=== PATIENT | male | born 1965 | race Caucasian/White ===

== ENCOUNTER 2018-02-28 17:33 | Inpatient (IN) | payer BC ==
[2018-02-28] MEDS ORDERED: TICAGRELOR 90 MG TAB PO STA (17:35)
[2018-02-28] MEDS ORDERED: MORPHINE SULF 5MG/10ML VL ONE (17:38)
[2018-02-28] MEDS ORDERED: MORPHINE SULFATE 4 MG/ML SYRINGE IVP STA (17:41)
[2018-02-28] MEDS ORDERED: MORPHINE SULFATE/PF 10MG/10ML VL IVP STA (17:41)
[2018-02-28] MEDS ORDERED: HEPARIN SODIUM,PORCINE 5,000 UNIT/ML 1 ML VIAL IV PRN (17:44)
[2018-02-28] MEDS ORDERED: NITROGLYCERIN SL TABS 0.4 MG TAB SUBLINGUAL PRN ×2 (17:44→18:33)
--- NOTE | 2018-02-28 17:44 | ED ---
General Adult HPI - General Stated complaint: Chest Pain Time Seen by Provider: 02/28/18 17:37 Source: RN notes reviewed, old records reviewed - History of Present Illness Initial comments: This is a 52-year-old male to the ER for evaluation, patient presents ER for evaluation of chest pain, patient accepted in transfer to [facility] for evaluation regarding severe chest pain positive ST elevated GA. Positive Chest pain currently Review of Systems ROS Statement: Those systems with pertinent positive or pertinent negative responses have been documented in the HPI. ROS Other: All systems not noted in ROS Statement are negative. General Exam General appearance: alert, in no apparent distress, anxious, in distress Head exam: Present: atraumatic, normocephalic, normal inspection Eye exam: Present: normal appearance, PERRL, EOMI. Absent: scleral icterus, conjunctival injection, periorbital swelling ENT exam: Present: normal exam, mucous membranes moist Neck exam: Present: normal inspection. Absent: tenderness, meningismus, lymphadenopathy Respiratory exam: Present: normal lung sounds bilaterally. Absent: respiratory distress, wheezes, rales, rhonchi, stridor Cardiovascular Exam: Present: regular rate, normal rhythm, normal heart sounds. Absent: systolic murmur, diastolic murmur, rubs, gallop, clicks GI/Abdominal exam: Present: soft, normal bowel sounds. Absent: distended, tenderness, guarding, rebound, rigid Extremities exam: Present: normal inspection, full ROM, normal capillary refill. Absent: tenderness, pedal edema, joint swelling, calf tenderness Back exam: Present: normal inspection Neurological exam: Present: alert, oriented X3, CN II-XII intact Psychiatric exam: Present: normal affect, normal mood Skin exam: Present: warm, dry, intact, normal color. Absent: rash Course - Reevaluation(s) Reevaluation #1: 02/28/18 17:43 Transfer follows received from [facility],, records reviewed from [facility] Reevaluation #2: 02/28/18 17:44 Cardiology evaluating patient in the ER EKG Findings - EKG Comments: EKG Findings:: EKG shows sinus rhythm rate of 70, SC 150, QRS 90, QTc [address] elevated GA Medical Decision Making - Medical Decision Making 52 male to the ED c/o chest pain. Severe chest pain started this morning. History of smoking. Patient will be admitted for cardiology treatment, Federal Agent Critical Care Time Critical Care Time: Yes Total Critical Care Time: 31 Disposition Clinical Impression: STEMI (ST elevation myocardial infarction) Disposition: ADMITTED IP TO THIS HOSP Condition: Serious Referrals: Shazia Mccormick DO [Primary Care Provider] - 1-2 days
[2018-02-28] MEDS ORDERED: HEPARIN SODIUM,PORCINE/D5W PMX 25,000 UNIT in DEXTROSE/WATER 1 500ML.BAG IV SCH (17:45)
[2018-02-28] MEDS ORDERED: fentaNYL (PF) 50 MCG/ML 2 ML AMP IVP ONE (17:53)
[2018-02-28] MEDS ORDERED: MIDAZOLAM 2 MG/2 ML VIAL IVP ONE (17:55)
[2018-02-28] MEDS ORDERED: LIDOCAINE 2% INJ 20 MG/ML SQ ONE (17:56)
[2018-02-28] MEDS ORDERED: SODIUM CHLORIDE 0.9% 1,000 ML IV ONE (17:57)
[2018-02-28] MEDS ORDERED: BIVALIRUDIN BOLUS 250 MG/50 ML IV ONE (18:05)
[2018-02-28] MEDS ORDERED: BIVALIRUDIN 250 MG in SODIUM CHLORIDE 0.9% 50 ML IV ONE (18:06)
[2018-02-28] MEDS ORDERED: IOPAMIDOL-370 125ML BTL INJ ONE (18:17)
[2018-02-28] MEDS ORDERED: IOPAMIDOL-370 100ML BTL INJ ONE (18:21)
--- NOTE | 2018-02-28 18:30 | CONS ---
CONSULTATION Mr. Baig is a 52-year-old gentleman who was transferred from the [facility] because of the anterior lateral myocardial infarction. Patient initially presented to the [facility] with the pain started around 9 o'clock in the morning. Patient had uncomfortable feeling in the anterior part of the chest. Patient was working outside. Throughout the day; however, patient continued to have this discomfort on and off. Patient subsequently came to the emergency room in the [facility]. At that time, he was having a pain at around 7. Initial EKG done at that time, was normal. Subsequent EKG done 10 minutes later showed evidence of anterior lateral myocardial infarction. And so the patient was transferred over here. Patient has a history of smoking. Patient denies any history of diabetes or hypertension. He does not take any medications. He is not allergic to any medications. There is no strong family history of coronary artery disease. PAST MEDICAL HISTORY: History of hiatal hernia. PHYSICAL EXAMINATION: Reveals a 52-year-old gentleman who was having a pain in the range of 7/10. Blood pressure was 130/82 mmHg, heart rate is 80 per minute. HEENT examination is negative. Neck is supple. There is no increase in jugular venous pressure. Both the carotid pulses are felt. There is no bruit. Chest is symmetrical. Heart, the PMI is not felt. First and second heart sounds are normal. There is no evidence of any murmur. Lungs are clinically clear to auscultation and percussion. Abdomen is soft. Liver and spleen are not enlarged. Bowel sounds are heard. Extremities, peripheral pulses are 2+. Initial EKG in the [facility] was normal. EKG performed about 15 minutes later showed evidence of anterior lateral myocardial infarction. FINAL IMPRESSION: This patient has presented with acute anterior lateral myocardial infarction. Patient was explained the procedure and risk and we will take him to the cardiac catheterization laboratory for primary angioplasty. MMODL / IJN: [id number] /
[2018-02-28] MEDS ORDERED: MAG HYDROX/AL HYDROX/SIMETH 30 ML CUP PO PRN (18:33)
[2018-02-28] MEDS ORDERED: RX INFO: IV CONTRAST WAS GIVEN 1 EACH MISC MISCELLANE PRN (18:33)
[2018-02-28] MEDS ORDERED: ZOLPIDEM 5 MG TAB PO PRN (18:33)
[2018-02-28] MEDS ORDERED: ATROPINE SULFATE 0.1 MG/ML 10ML SYRINGE IV PRN (18:33)
--- NOTE | 2018-02-28 18:36 | CC ---
CARDIAC CATHETERIZATION REPORT Mr. Baig is a 52-year-old gentleman who was a transferred from [facility] because of acute anterolateral myocardial infarction and patient was advised urgent cardiac catheterization. PROCEDURE: The right groin was prepped and draped in the usual manner and the skin was infiltrated with 2% Xylocaine. The right femoral artery was entered using Seldinger technique. A #6-Ukrainian sheath was placed in. Selective coronary angiography was then performed in multiple projections. Subsequently, Dr. Barillas proceeded with a stent to the LAD. CORONARY ANGIOGRAPHY: Left main coronary artery is normally patent. The mid LAD after the origin of the small size diagonal branch has a 99% stenosis with evidence of filling defect suggestive of possible thrombus. Circumflex coronary artery is normal. Right coronary artery is normal. FINAL IMPRESSION: This is a 99% stenosis in the mid left anterior descending artery. Circumflex and the right coronary arteries are normal. RECOMMENDATIONS: ill proceed with stent to the LAD. MMODL / IJN: [id number] /
[2018-02-28] MEDS ORDERED: SODIUM CHLORIDE 0.9% 1,000 ML IV SCH (18:45)
[2018-02-28 18:49] LABS: Glucose,Whole Blood 257 mg/dL (75-99)
[2018-02-28 18:54] VITALS: BMI 23.6
--- NOTE | 2018-02-28 18:57 | PTCA ---
PERCUTANEOUSTRANS CORORONARY ANGIOGRAPHY Mr. Baig is a 52-year-old male with no prior documented history of coronary artery disease, history of chronic tobacco use, who presented to [facility] with symptoms of chest discomfort and had EKG changes consistent with an acute ST- segment elevation anterior wall myocardial infarction. In view of that, he underwent emergent cardiac catheterization. He was found to have a subtotally occluded proximal LAD with intracoronary thrombus. Recommendation made regarding angioplasty and stenting. The procedure, risks, benefits and complication were discussed with the patient, who is in full understanding and agreement. PROCEDURE: A 6-Taiwanese FR4 guiding catheter was introduced the system. After advancing through the left main, a 0.014 advanced medium weight J-wire was advanced across the lesion and positioned distally. An export catheter was advanced and 1 run was performed. Following that, catheter was removed and a 3.25 x 28 mm Xience Alpine stent was deployed, postdilated at 16 atmospheres. After the last inflation, after appropriate wait, the guidewire was withdrawn back in the guiding catheter. Images were obtained and repeated. Those images reveal stable successful stenting. At that point, the guiding catheter, the balloon and the guidewire were removed and a 6-Taiwanese tight pigtail catheter was introduced into the left ventricle and 30-degree BRUCE view of the left ventricle was obtained. Following that, catheter and sheath were removed. Hemostasis was obtained with deployment of Angio-Seal. There was no immediate complication. Patient was returned to his room in stable condition. Of note, the patient received Angiomax per protocol and he has received an oral loading dose of Brilinta. His pain has improved at the end of the procedure. RESULTS: 1. Successful stenting of the proximal left anterior descending with reduction of stenosis from 99%-0%. 2. Moderately to severely impaired left ventricular systolic function with anterior apical severe hypokinesis to akinesis with ejection fraction of 35%-40% with no significant mitral regurgitation. 3. Left ventricular end-diastolic pressure of 18-20 mmHg. RECOMMENDATION: Patient will be continued on aspirin, Brilinta, beta blockers, EFRAIN inhibitor and statin. The importance of dual antiplatelet treatment and smoking cessation were discussed with the patient and he is in full understanding and agreement. DURATION OF PROCEDURE: 19 minutes. MMODL / IJN: [id number] /
--- NOTE | 2018-02-28 20:03 | PN ---
PROGRESS NOTE DATE OF SERVICE: 02/28/2018. HISTORY: The patient underwent mitral valve replacement as well repair. The patient's electronic medical records were reviewed. The patient is sitting comfortably in the bedside chair. She is not in any acute distress. She does not complain of any shortness of breath. The patient has been coughing and . Incentive spirometry is 500 to 770 mL. The patient is currently being ventricular paced with a heart rate of 60. PHYSICAL EXAMINATION: The patient's blood pressure is 93/42 mmHg, heart rate is 50, afebrile. HEART: First and second heart sounds are normal. LUNGS: Bilateral air entry. LABORATORY AND DIAGNOSTIC DATA: The chest x-ray does not show any significant congestive cardiac failure. The patient is currently . The patient's electrolytes are normal. Creatinine is 0.80. We will continue the current medications. The patient currently is being . MMODL / IJN: [id number] /
[2018-02-28 20:46] LABS: Creatine Kinase MB 2.6 ng/mL (0.0-2.4); Troponin I 0.496 ng/mL (0.000-0.034)
[2018-02-28] MEDS: TICAGRELOR 90 MG TAB PO SCH (20:46)
[2018-02-28] MEDS: ATORVASTATIN 80 MG TAB PO SCH (20:46)
[2018-02-28] MEDS: METOPROLOL TARTRATE 25 MG TAB PO SCH (20:46)
[2018-02-28] MEDS ORDERED: METOPROLOL TARTRATE 25 MG TAB PO SCH (21:00)
[2018-03-01 02:29] LABS: Creatine Kinase MB 19.9 ng/mL (0.0-2.4); Troponin I 5.62 ng/mL (0.000-0.034)
[2018-03-01 07:11] LABS: Mean Platelet Volume 7.5; Platelet Count 251 k/uL (150-450)
[2018-03-01 07:25] LABS: Anion Gap 9 mmol/L; Blood Urea Nitrogen 13 mg/dL (9-20); Calcium 8.4 mg/dL (8.4-10.2); Carbon Dioxide 25 mmol/L (22-30); Chloride 107 mmol/L (98-107); Cholesterol 205 mg/dL (<200); Glucose 94 mg/dL (74-99); HDL Cholesterol 33 mg/dL (40-60); LDL Cholesterol,Calculated 147 mg/dL (0-99); Potassium 4.2 mmol/L (3.5-5.1); Sodium 141 mmol/L (137-145); Triglycerides 127 mg/dL (<150)
[2018-03-01 07:55] LABS: Creatine Kinase MB 40.1 ng/mL (0.0-2.4)
[2018-03-01 07:56] LABS: Troponin I 9.62 ng/mL (0.000-0.034)
[2018-03-01] MEDS ORDERED: ATORVASTATIN 80 MG TAB PO SCH (09:00)
[2018-03-01] MEDS ORDERED: ASPIRIN 325 MG TAB PO SCH (09:00)
[2018-03-01] MEDS: TICAGRELOR 90 MG TAB PO SCH ×2 (09:09→20:17)
[2018-03-01] MEDS: SPIRONOLACTONE 25 MG TAB PO SCH (09:09)
[2018-03-01] MEDS: ASPIRIN 81 MG PO SCH (09:09)
[2018-03-01] MEDS: METOPROLOL TARTRATE 25 MG TAB PO SCH ×2 (09:09→20:17)
[2018-03-01] MEDS: LISINOPRIL 5 MG TAB PO SCH (11:18)
--- NOTE | 2018-03-01 12:41 | P.HPIM ---
History of Present Illness H&P Date: 03/01/18 Chief Complaint: Chest pain Reece Baig is a 52-year-old male patient of Dr. Shazia Mccormick who presented to [facility] emergency room with a chief complaint of chest pain , patient states that he was working outside he started having chest pain, patient described it as discomfort in the anterior part of his chest, this started around 9 AM and kept on going on throughout the day, around 2 PM he decided to go to [facility] emergency room, he was evaluated there, first EKG was within normal limits, subsequent EKG done 10 minutes later revealed evidence of anterior infarct with ST elevation in the anterior leads, patient was transferred in an ambulance to [facility] emergency room, he was evaluated by cardiology and was taken to the [facility], patient underwent cardiac catheterization and had evidence of 99% stenosis in the mid LAD, he underwent angioplasty with stent placement, and was admitted to intensive care. Past medical history: Patient denies any significant past medical history, he denies having any history of diabetes mellitus, no known history of hypertension or hyperlipidemia , he does not take any medications at home, he is a smoker. 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 Past Medical History Past Medical History: No Reported History Additional Past Medical History / Comment(s): Hiatal Hernia History of Any Multi-Drug Resistant Organisms: None Reported Past Surgical History: Orthopedic Surgery Additional Past Surgical History / Comment(s): left hand fixation Past Anesthesia/Blood Transfusion Reactions: No Reported Reaction Past Psychological History: No Psychological Hx Reported Smoking Status: Current every day smoker Medications and Allergies Home Medications Medication Instructions Recorded Confirmed Type No Known Home Medications [No 02/28/18 02/28/18 History Known Home Medications] Allergies Allergy/AdvReac Type Severity Reaction Status Date / Time No Known Allergies Allergy Verified 02/28/18 18:28 Physical Exam Vitals: Vital Signs Temp Pulse Resp BP BP Pulse Ox 03/01/18 11:00 60 12 102/62 96 03/01/18 10:00 62 13 106/66 97 03/01/18 09:00 67 12 118/70 96 03/01/18 08:30 62 12 109/62 96 03/01/18 08:00 98.0 F 70 12 111/63 97 03/01/18 07:30 65 9 L 107/63 97 03/01/18 07:00 62 11 L 109/52 99 03/01/18 06:30 91 30 H 111/67 98 03/01/18 06:00 71 17 115/66 98 03/01/18 05:30 60 13 109/56 98 03/01/18 05:00 68 12 113/63 98 03/01/18 04:30 70 31 H 107/60 98 03/01/18 04:00 98 F 73 13 95/58 98 03/01/18 03:30 71 6 L 107/58 97 03/01/18 03:00 73 13 108/60 97 03/01/18 02:30 65 11 L 99/56 98 03/01/18 02:00 71 12 106/53 97 03/01/18 01:30 60 8 L 100/62 97 03/01/18 01:00 60 13 104/55 97 03/01/18 00:30 65 12 101/57 98 03/01/18 00:00 97.9 F 59 L 10 L 105/62 98 02/28/18 23:30 59 L 12 103/63 98 02/28/18 23:13 59 L 12 102/67 98 02/28/18 23:00 59 L 11 L 104/65 98 02/28/18 22:30 55 L 8 L 117/69 99 02/28/18 22:00 76 28 H 120/72 99 02/28/18 21:30 90 24 108/70 99 02/28/18 21:00 65 10 L 109/87 99 02/28/18 20:30 97.9 F 67 13 113/60 99 02/28/18 20:00 67 5 L 118/73 99 02/28/18 19:30 75 9 L 121/76 99 18 19:15 66 14 121/76 99 05/18 19:00 97.6 F 83 14 114/64 99 05/18 18:46 78 20 95 0518 17:54 97.6 F 22 114/64 02/28/18 17:40 126/65 18 17:35 97.0 F L 61 16 95 Intake and Output 02/28/1818 03/01/18 22:59 06:59 14:59 Intake Total 568.6 800 40 Output Total 600 350 0 Balance -31.4 450 40 Intake: IV 568.6 800 40 0.9 NACL 400 800 40 Output: Urine 600 350 0 Other: Voiding Method Urinal Weight 70.6 kg In general patient is alert and oriented 3 in no apparent distress HEENT head normocephalic and atraumatic Neck is supple no JVD no goiter no lymphadenopathy Chest exam reveals a few scattered rhonchi no wheezing Cardiac exam reveals regular heart sounds S1 and S2 no gallops no murmurs Abdomen is soft nontender no organomegaly with normal bowel sounds Extremity exam reveals no edema no cyanosis or clubbing Results CBC & Chem 7: 03/01/18 06:44 03/01/18 06:44 Labs: Abnormal Lab Results - Last 24 Hours (Table) 02/28/18 02/28/18 03/01/18 Range/Units 18:46 19:45 01:30 POC Glucose (mg/dL) 257 H (75-99) mg/dL Total Creatine Kinase 283 H (55-170) U/L CK-MB (CK-2) 2.6 H* 19.9 H* (0.0-2.4) ng/mL Troponin I 0.496 H* 5.620 H* (0.000-0.034) ng/mL Cholesterol (<200) mg/dL LDL Cholesterol, Calc (0-99) mg/dL HDL Cholesterol (40-60) mg/dL 03/01/18 03/01/18 Range/Units 06:44 06:44 POC Glucose (mg/dL) (75-99) mg/dL Total Creatine Kinase 487 H (55-170) U/L CK-MB (CK-2) 40.1 H* (0.0-2.4) ng/mL Troponin I 9.620 H* (0.000-0.034) ng/mL Cholesterol 205 H (<200) mg/dL LDL Cholesterol, Calc 147 H (0-99) mg/dL HDL Cholesterol 33 L (40-60) mg/dL Thrombosis Risk Factor Assmnt - Choose All That Apply Each Factor Represents 1 point: Acute OK, Age 41-60 years, Medical pt on bed rest Thrombosis Risk Factor Assessment Total Risk Factor Score: 3 Thrombosis Risk Factor Assessment Level: Moderate Risk Assessment and Plan Plan: #[address] elevation myocardial infarction #2 moderately to severely impaired left ventricular systolic function, with ejection fraction of 35-40% #3 underlying history of smoking, importance of quitting smoking discussed in details with patient he seems to understand At this time patient is admitted to intensive care unit, he underwent successful angioplasty and stent placement to the mid LAD, he is maintained on aspirin, Brillinta, Lipitor 80 mg, Zestril and metoprolol, continue with current management will follow closely.
--- NOTE | 2018-03-01 18:58 | PN ---
PROGRESS NOTE This patient came with acute anterior lateral wall myocardial infarction. The patient had a 99% stenosis of the mid LAD. The patient underwent a stent placement. He is feeling much better. Denies any chest pain, no shortness of breath. Vital signs have remained stable. Patient is afebrile. Blood pressure is 110/66 mmHg. First and second heart sounds are normal. Chest is clinically clear to auscultation and percussion. Abdomen is negative. Maximum troponin was 9.6. Noted the patient's cholesterol is 205 and LDL level is 137, HDL is 33. We will continue the current medications. MMODL / IJN: [id number] /
[2018-03-01] MEDS: ATORVASTATIN 80 MG TAB PO SCH (20:17)
[2018-03-02 06:02] LABS: Platelet Count 248 k/uL (150-450)
[2018-03-02] MEDS: METOPROLOL TARTRATE 25 MG TAB PO SCH ×2 (08:15→20:44)
[2018-03-02] MEDS: ASPIRIN 81 MG PO SCH (08:15)
[2018-03-02] MEDS: TICAGRELOR 90 MG TAB PO SCH ×2 (08:15→20:44)
[2018-03-02] MEDS: SPIRONOLACTONE 25 MG TAB PO SCH (08:16)
--- NOTE | 2018-03-02 09:55 | ECHOF ---
Referral Reason:ca MEASUREMENTS -------- HEIGHT: 172.7 cm WEIGHT: 70.3 kg BP: 111/60 IVSd: 0.8 cm (0.6 - 1.1) LVIDd: 4.4 cm (3.9 - 5.3) LVPWd: 1.1 cm (0.6 - 1.1) IVSs: 1.3 cm LVIDs: 2.9 cm LVPWs: 1.7 cm LAESV Index (A-L): 14.17 ml/m Ao Diam: 3.0 cm (2.0 - 3.7) AV Cusp: 2.2 cm (1.5 - 2.6) LA Diam: 3.4 cm (2.7 - 3.8) MV EXCURSION: 19.436 mm (> 18.000) MV EF SLOPE: 132 mm/s (70 - 150) EPSS: 1.1 cm MV E Nam: 0.64 m/s MV DecT: 168 ms MV A Nam: 0.72 m/s MV E/A Ratio: 0.89 RAP: 5.00 mmHg RVSP: 31.59 mmHg FINDINGS -------- Sinus rhythm. This was a technically good study. The left ventricular size is normal. Left ventricular wall thickness is normal. Overall left vent ricular systolic function is mildly impaired with, an EF between 45 - 50 %. Basal inferior LV wall motion is hypokinetic. The right ventricle is normal in size and function. The left atrium is normal in size. The right atrium is normal in size. The aortic valve is trileaflet, and appears structurally normal. No aortic stenosis or regurgitation. Mild mitral regurgitation is present. Mild tricuspid regurgitation present. The right ventricular systolic pressure, as measured by Doppl er, is 31.59mmHg. Pulmonic valve appears structurally normal. The aortic root size is normal. Normal inferior vena cava with normal inspiratory collapse consistent with estimated right atrial pre ssure of 5 mmHg. The pericardium is normal. CONCLUSIONS -------- 1. Sinus rhythm. 2. This was a technically good study. 3. The left ventricular size is normal. 4. Left ventricular wall thickness is normal. 5. Overall left ventricular systolic function is mildly impaired with, an EF between 45 - 50 %. 6. Basal inferior LV wall motion is hypokinetic. 7. The right ventricle is normal in size and function. 8. The left atrium is normal in size. 9. The right atrium is normal in size. 10. The aortic valve is trileaflet, and appears structurally normal. No aortic stenosis or regurgitat ion. 11. Mild mitral regurgitation is present. 12. Mild tricuspid regurgitation present. 13. The right ventricular systolic pressure, as measured by Doppler, is 31.59mmHg. 14. Pulmonic valve appears structurally normal. 15. The aortic root size is normal. 16. Normal inferior vena cava with normal inspiratory collapse consistent with estimated right atrial pressure of 5 mmHg. 17. The pericardium is normal. PRIMARY HEALTH ORGANISATION MANAGER: Savannah Delgado RDCS
--- NOTE | 2018-03-02 11:38 | P.PN ---
Subjective Progress Note Date: 03/02/18 Reece Baig is a 52-year-old male patient of Dr. Shazia Mccormick who presented to [facility] emergency room with a chief complaint of chest pain , patient states that he was working outside he started having chest pain, patient described it as discomfort in the anterior part of his chest, this started around 9 AM and kept on going on throughout the day, around 2 PM he decided to go to [facility] emergency room, he was evaluated there, first EKG was within normal limits, subsequent EKG done 10 minutes later revealed evidence of anterior infarct with ST elevation in the anterior leads, patient was transferred in an ambulance to [facility] emergency room, he was evaluated by cardiology and was taken to the [facility], patient underwent cardiac catheterization and had evidence of 99% stenosis in the mid LAD, he underwent angioplasty with stent placement, and was admitted to intensive care. Past medical history: Patient denies any significant past medical history, he denies having any history of diabetes mellitus, no known history of hypertension or hyperlipidemia , he does not take any medications at home, he is a smoker. 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 03/02/2018 patient currently in the ICU as a selective overflow. He's had no further episodes of chest pain or shortness of breath. Denies any nausea or vomiting. Denies any bowel movement for the last 2 days. Denies any burning with urination. Objective - Vital Signs Vital signs: Vital Signs Temp 97.5 F L 03/02/18 08:00 Pulse 66 03/02/18 08:00 Resp 21 03/02/18 08:00 BP 104/55 03/02/18 08:00 Pulse Ox 97 03/02/18 08:00 Intake & Output 03/01/18 03/02/18 03/02/18 18:59 06:59 18:59 Intake Total 640 250 Output Total 1400 1575 925 Balance -369 -6467 -637 Weight 70.6 kg 70.6 kg Intake: IV 40 0 0.9 NACL 40 0 Oral 600 250 Output: Urine 1400 1575 925 Other: Voiding Method Urinal Urinal Toilet Urinal - Exam Head normocephalic Neck supple Lungs clear to auscultation bilaterally no wheezing or crackles Heart regular rate and rhythm S1-S2, no rub or gallop Abdomen is soft nontender nondistended positive bowel sounds no hepatosplenomegaly Extremities no edema Neuro alert and orientated to 3 - Labs CBC & Chem 7: 03/02/18 05:28 03/01/18 06:44 Assessment and Plan Assessment: #[address] elevation myocardial infarction present on admission with successful angioplasty and stent placement to the mid LAD. Continue aspirin, Proventil, Lipitor, Zestril and metoprolol. Cardiology following #2 moderately to severely impaired left ventricular systolic function, with ejection fraction of 35-40%. Repeat echo shows an EF of 40-50% with basal inferior wall motion hypokinetic #3 underlying history of smoking, importance of quitting smoking discussed in details with patient he seems to understand #4 constipation: add Colace Encourage patient to increase activity I performed an examination of the patient and discussed their management with the physician Investigator Internal Revenue. I have reviewed the Physician Investigator [employer]'s notes and agree with the documented findings and plan of care
[2018-03-02] MEDS: LISINOPRIL 5 MG TAB PO SCH (13:08)
[2018-03-02] MEDS: DOCUSATE 100 MG CAP PO SCH ×2 (13:08→20:44)
--- NOTE | 2018-03-02 16:59 | PN ---
PROGRESS NOTE This patient is admitted with acute anterior lateral myocardial infarction and the patient underwent stent to the LAD. Patient is doing well. The patient's vital signs remain stable. No dysrhythmias are noted. Blood pressure is 110/52 mmHg. Heart: First and second heart sounds are normal. Lungs are clinically clear to auscultation and percussion. Abdomen is soft. The patient's maximum troponin was 9.6. The patient's echocardiogram reveals a mildly impaired left ventricular systolic function with ejection fraction of 45% to 50%. We will continue the current medications. If the patient remains stable, we will discharge the patient tomorrow. MMODL / IJN: [id number] /
[2018-03-02] MEDS: ATORVASTATIN 80 MG TAB PO SCH (20:44)
[2018-03-02] MEDS ORDERED: ACETAMINOPHEN TAB 325 MG TAB PO PRN (21:39)
[2018-03-02 23:45] VITALS: RESP 16
[2018-03-03 07:01] LABS: Basophils # (A) 0.1 k/uL (0-0.2); Basophils % (A) 0 %; Eosinophils # (A) 0.8 k/uL (0-0.7); Eosinophils % (A) 7 %; HCT 45.6 % (39.0-53.0); HGB 15.3 gm/dL (13.0-17.5); Lymphocytes # (A) 2.5 k/uL (1.0-4.8); Lymphocytes % (A) 23 %; MCH 29.2 pg (25.0-35.0); MCHC 33.6 g/dL (31.0-37.0); MCV 86.8 fL (80.0-100.0); Mean Platelet Volume 7.3; Monocytes # (A) 0.7 k/uL (0-1.0); Monocytes % (A) 7 %; Neutrophils # (A) 6.9 k/uL (1.3-7.7); Neutrophils % (A) 62 %; Platelet Count 271 k/uL (150-450); RBC 5.25 m/uL (4.30-5.90); RDW 12.9 % (11.5-15.5); WBC 11.1 k/uL (3.8-10.6)
[2018-03-03] MEDS: METOPROLOL TARTRATE 25 MG TAB PO SCH (08:11)
[2018-03-03] MEDS: ASPIRIN 81 MG PO SCH (08:11)
[2018-03-03] MEDS: DOCUSATE 100 MG CAP PO SCH (08:11)
[2018-03-03] MEDS: LISINOPRIL 5 MG TAB PO SCH (08:11)
[2018-03-03] MEDS: TICAGRELOR 90 MG TAB PO SCH (08:11)
[2018-03-03] MEDS: SPIRONOLACTONE 25 MG TAB PO SCH (08:12)
[2018-03-03 08:18] VITALS: PULSE 64
[2018-03-03 10:24] LABS: Anion Gap 11 mmol/L; Blood Urea Nitrogen 14 mg/dL (9-20); Calcium 9.2 mg/dL (8.4-10.2); Carbon Dioxide 27 mmol/L (22-30); Chloride 106 mmol/L (98-107); Glucose 92 mg/dL (74-99); Potassium 4.5 mmol/L (3.5-5.1); Sodium 144 mmol/L (137-145)
[2018-03-03 11:43] VITALS: BP 110/57; TEMP 97.6
--- NOTE | 2018-03-03 12:27 | P.PN ---
Subjective Progress Note Date: 03/03/18 This is a 52-year-old gentleman who presented to the hospital with an acute anterior lateral myocardial infarction, underwent angioplasty and stenting of the LAD. Patient was seen and examined today on the telemetry unit. Feels well, denies any chest pain or difficulty in breathing. Hemodynamically he is stable. Echocardiogram with Doppler study was performed which revealed an ejection fraction of 45-50%. Objective - Vital Signs Vital signs: Vital Signs Temp 97.6 F 03/03/18 11:40 Pulse 64 03/03/18 11:40 Resp 16 03/03/18 11:40 BP 110/57 03/03/18 11:40 Pulse Ox 97 03/03/18 11:40 Intake & Output 03/02/18 03/03/18 03/03/18 18:59 06:59 18:59 Intake Total 400 360 Output Total 800 Balance -800 400 360 Weight 70.6 kg 71.6 kg Intake: Oral 400 360 Output: Urine 800 Other: Voiding Method Toilet Toilet Toilet Urinal Urinal Urinal # Voids 1 - Exam PHYSICAL EXAMINATION: HEENT: Head is atraumatic, normocephalic. Pupils equal, round. Neck is supple. There is no elevated jugular venous pressure. HEART EXAMINATION: Heart S1, S2 normal. No murmur or gallop heard. CHEST EXAMINATION: Lungs are clear to auscultation and precussion. No chest wall tenderness is noted on palpation or with deep breathing. ABDOMEN: Soft, nontender. Bowel sounds are heard. No organomegaly noted. EXTREMITIES: 2+ peripheral pulses with no evidence of peripheral edema and no calf tenderness noted. NEUROLOGIC patient is awake, alert and oriented -3. . - Labs CBC & Chem 7: 03/03/18 06:17 03/03/18 06:17 Labs: Abnormal Lab Results - Last 24 Hours (Table) 03/03/18 Range/Units 06:17 WBC 11.1 H (3.8-10.6) k/uL Eosinophils # 0.8 H (0-0.7) k/uL Assessment and Plan Plan: Assessment and plan #1 acute anterior lateral myocardial infarction, status post LAD stenting #2 Hyperlipidemia #3 history of nicotine dependence Plan From cardiology's perspective patient may be able to be discharged home today. He will be discharged on aspirin 81 mg daily, Lipitor 80 mg daily, lisinopril 5 mg daily, metoprolol 25 mg twice a day, Aldactone 25 mg daily, Brilinta 90 mg twice a day and sublingual nitroglycerin as needed for chest pain. Patient has been educated regarding his medications, he is also been provided prescriptions for all of the above medications. DNP note has been reviewed, I agree with a documented findings and plan of care. Patient was seen and examined.
--- NOTE | 2018-03-03 13:28 | P.DS ---
Providers Date of admission: 02/28/18 17:45 Expected date of discharge: 03/03/18 Attending physician: Pascual Chang Consults: 02/28/18 17:45 Consult Physician Urgent Consulting Provider: Lorenza Quiroz Consult Reason/Comments: stemi Do you want consulting provider notified?: Yes 02/28/18 18:33 Consult Physician Routine Consulting Provider: [facility] Consult Reason/Comments: Post Interventional patient Do you want consulting provider notified?: Already Contacted Primary care physician: Shazia Mccormick [facility] Course: Discharge diagnosis #[address] elevation myocardial infarction present on admission with successful angioplasty and stent placement to the mid LAD. Continue aspirin, Brilinta, Lipitor, Zestril and metoprolol. Cardiology following #2 moderately to severely impaired left ventricular systolic function, with ejection fraction of 35-40%. Repeat echo shows an EF of 40-50% with basal inferior wall motion hypokinetic #3 nicotine dependence: Discussed smoking cessation greater than 3 minutes. Patient will be discharged with [facility] Hospital course Reece Baig is a 52-year-old male patient of Dr. Shazia Mccormick who presented to [facility] emergency room with a chief complaint of chest pain , patient states that he was working outside he started having chest pain, patient described it as discomfort in the anterior part of his chest, this started around 9 AM and kept on going on throughout the day, around 2 PM he decided to go to [facility] emergency room, he was evaluated there, first EKG was within normal limits, subsequent EKG done 10 minutes later revealed evidence of anterior infarct with ST elevation in the anterior leads, patient was transferred in an ambulance to [facility] emergency room, he was evaluated by cardiology and was taken to the Abseiling Instructor, patient underwent cardiac catheterization and had evidence of 99% stenosis in the mid LAD, he underwent angioplasty with stent placement, and was admitted to intensive care. Cardiology has added medications as stated above. Patient has been chest pain- free. They have cleared him for discharge. Patient also be placed on Chantix to help with smoking cessation. Patient will be given a work note to return to work on Friday. Patient is medically stable for discharge. Please refer to chart for any further details. I performed an examination of the patient and discussed their management with the physician Liquor Inspector. I have reviewed the Physician Liquor Inspector's notes and agree with the documented findings and plan of care Patient Condition at Discharge: Stable Plan - Discharge Summary Discharge Rx Participant: Yes New Discharge Prescriptions: New Aspirin 81 mg PO DAILY #30 chew Atorvastatin [Lipitor] 80 mg PO HS #30 tab Lisinopril [Zestril] 5 mg PO DAILY #30 tab Metoprolol Tartrate [Lopressor] 25 mg PO BID #60 tab Nitroglycerin Sl Tabs [Nitrostat] 0.4 mg SUBLINGUAL Q5M PRN #25 tab PRN Reason: Chest Pain Spironolactone [Aldactone] 25 mg PO DAILY #30 tab Ticagrelor [Brilinta] 90 mg PO BID #90 tab Varenicline Tartrate [Chantix Starter Pack] 0.5 mg PO DIRECTED #53 tab Discharge Medication List Aspirin 81 mg PO DAILY #30 chew 03/03/18 [Rx] Atorvastatin [Lipitor] 80 mg PO HS #30 tab 03/03/18 [Rx] Lisinopril [Zestril] 5 mg PO DAILY #30 tab 03/03/18 [Rx] Metoprolol Tartrate [Lopressor] 25 mg PO BID #60 tab 03/03/18 [Rx] Nitroglycerin Sl Tabs [Nitrostat] 0.4 mg SUBLINGUAL Q5M PRN #25 tab 03/03/18 [Rx ] Spironolactone [Aldactone] 25 mg PO DAILY #30 tab 03/03/18 [Rx] Ticagrelor [Brilinta] 90 mg PO BID #90 tab 03/03/18 [Rx] Varenicline Tartrate [Chantix Starter Pack] 0.5 mg PO DIRECTED #53 tab [Rx] Follow up Appointment(s)/Referral(s): Shazia Mccormick DO [Primary Care Provider] - 03/06/18 1:15 pm (Friday with Berenice ORNELAS) Lorenza Quiroz MD [STAFF PHYSICIAN] - 03/10/18 4:30 pm (at [facility]) Patient Instructions/Handouts: *Surgery [facility] - After Heart Catheterization - Top Spotter Instructions, Left Heart Catheterization (DC) Activity/Diet/Wound Care/Special Instructions: Diet: cardiac Activity: as tolerated no smoking Work note provided Discharge Disposition: HOME SELF-CARE
== END 2018-03-03 14:30 | disposition home or self-care (01) | DRG 247 ==
LOC: SUPCPDRO 17:33 → EC 17:33 → 6ICU 17:45 → 6SEL 03-02 21:12
PROVIDERS: ADMIT Internal Medicine; ATTEND Internal Medicine
PROC: 027034Z Dilation of Coronary Artery, One Artery with Drug-eluting Intraluminal Device, Percutaneous Approach (ICD-10-PCS; principal; 2018-02-28 17:35)
PROC: B211YZZ Fluoroscopy of Multiple Coronary Arteries using Other Contrast (ICD-10-PCS; 2018-02-28 17:35)
DX: I21.09 ST elevation (STEMI) myocardial infarction involving other coronary artery of anterior wall (principal); E78.5 Hyperlipidemia, unspecified; I25.10 Atherosclerotic heart disease of native coronary artery without angina pectoris; K44.9 Diaphragmatic hernia without obstruction or gangrene; K59.00 Constipation, unspecified; F17.210 Nicotine dependence, cigarettes, uncomplicated; Z71.6 Tobacco abuse counseling; Z95.2 Presence of prosthetic heart valve
CPT/HCPCS: 80048; 80061; 82550; 82553; 84484; 85025; 85049; 93005; 93306; 93458; 94760; 96374; 99291

== ENCOUNTER → 2018-07-08 | Outpatient (CLI) | payer BC ==
[2018-07-08 11:15] LABS: HCT 48.9 % (39.0-53.0); HGB 16.1 gm/dL (13.0-17.5); MCH 29.9 pg (25.0-35.0); MCV 90.7 fL (80.0-100.0); Mean Platelet Volume 6.6; Platelet Count 292 k/uL (150-450); RBC 5.39 m/uL (4.30-5.90); WBC 10.5 k/uL (3.8-10.6)
[2018-07-08 11:41] LABS: Anion Gap 9 mmol/L; Blood Urea Nitrogen 13 mg/dL (9-20); Carbon Dioxide 26 mmol/L (22-30); Chloride 106 mmol/L (98-107); Potassium 4.3 mmol/L (3.5-5.1); Sodium 141 mmol/L (137-145)
== END ==
LOC: LABPAT 10:37
PROVIDERS: ATTEND Internal Medicine Interventional Cardiology
DX: Z01.812 Encounter for preprocedural laboratory examination (principal); I25.10 Atherosclerotic heart disease of native coronary artery without angina pectoris; I70.212 Atherosclerosis of native arteries of extremities with intermittent claudication, left leg; I10 Essential (primary) hypertension; E78.1 Pure hyperglyceridemia
CPT/HCPCS: 80051; 82565; 84520; 85027

== ENCOUNTER → 2018-07-20 | Day surgery (SDC) | payer BC ==
[2018-07-16 08:30] VITALS: BMI 25.8
[~2018-07-20] MED LIST: ALPRAZolam 0.25 MG TAB PO PRN; ASPIRIN 325 MG TAB PO ONE; IOPAMIDOL-250 100ML BTL INTRAARTER ONE; LIDOCAINE 1% (PF) 10MG/ML VIAL SQ ONE; MIDAZOLAM 2 MG/2 ML VIAL IVP ONE; SODIUM CHLORIDE 0.9% 1,000 ML IV SCH; SODIUM CHLORIDE 0.9% 1,000 ML in EMPTY BAG 1 BAG IV ONE
[2018-07-20 11:34] VITALS: TEMP 98.4
--- NOTE | 2018-07-20 13:34 | AN ---
ANGIOGRAPHY REPORT PERIPHERAL ANGIOGRAM: DATE OF SERVICE: July 20, 2018 PERFORMING PHYSICIAN: Jemal Lugo MD PROCEDURE PERFORMED: 1. An abdominal aortogram. 2. Bilateral lower extremities runoff. INDICATION: This is a pleasant 52-year-old gentleman who sees Dr. Jose Angel Quiroz in the office as an outpatient with known history of coronary artery disease as well as smoking, who was experiencing left leg intermittent claudication and underwent an arterial duplex study and that revealed severe left iliac disease. Because of that an abdominal aortogram and bilateral lower extremity runoff was advised. APPROACH: Right common femoral artery. COMPLICATION: None. LEVEL OF SEDATION: Moderate with sedation length of 12 minutes. PROCEDURE DESCRIPTION: After obtaining an informed consent, the patient was brought to the cardiac chemical processing laborer. The right common femoral artery was cannulated using micropuncture technique and a micropuncture wire passed easily then I placed a 5-[place] Citizen sheath in the right common femoral artery. After that, I did an abdominal aortogram and bilateral lower extremities runoff using 5-[place] Citizen pigtail catheter which was initially placed at the level renal arteries and it was pulled into above the bifurcation of the aorta, right and left common iliac arteries. The procedure was completed without any complications. SELECTIVE PERIPHERAL ANGIOGRAM: 1. The aorta appears to be angiographically normal. 2. Common iliac arteries: The right common iliac artery is normal and the left common iliac artery appeared to have a tight lesion by the ostium. 3. External iliac arteries: The right and left external iliac arteries are angiographically normal. 4. Internal iliac arteries: The right internal iliac artery is patent. The left internal iliac artery appeared to be patent as well. 5. Common femoral arteries: Right and left common femoral arteries are normal. 6. Profunda: The right and left profunda are patent. 7. SFA: The right and left SFA are normal. 8. Popliteal: The right and left popliteal are patent. 9. Below the knee: There are 3 vessels runoff below the knee bilaterally. 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 POSTPROCEDURE MANAGEMENT: SEQUINS WINDER of the left iliac artery. MMODL / IJN: [id number] /
--- NOTE | 2018-07-20 13:38 | IR ---
EXAMINATION TYPE: IR angio abdominal w runoff DATE OF EXAM: 07/20/2018 CLINICAL HISTORY: Peripheral vascular disease and claudication TECHNIQUE: Fluoroscopy. COMPARISON: None. FINDINGS: Fluoroscopic guidance was provided during abdominal angiogram with lower extremity runoff procedure performed by Dr. Lugo. A total of 1.4 minutes of fluoroscopic time was utilized during the procedure and 6 cine runs are acquired. Images acquired show right groin access with pigtail cathete r and subsequent angiogram through the bilateral ankles. Please refer to procedure note for further d etails as I was not present nor performed procedure. IMPRESSION: As Above.
[2018-07-20 15:10] VITALS: RESP 16
[2018-07-20 16:10] VITALS: PULSE 74
[2018-07-20 16:37] VITALS: BP 110/63
== END ==
LOC: CATHCVL 11:00
PROVIDERS: ATTEND Internal Medicine Interventional Cardiology
DX: I70.212 Atherosclerosis of native arteries of extremities with intermittent claudication, left leg (principal); I10 Essential (primary) hypertension; E78.5 Hyperlipidemia, unspecified; Z95.5 Presence of coronary angioplasty implant and graft; F17.210 Nicotine dependence, cigarettes, uncomplicated; Z82.49 Family history of ischemic heart disease and other diseases of the circulatory system; I25.2 Old myocardial infarction; Z79.02 Long term (current) use of antithrombotics/antiplatelets; Z79.82 Long term (current) use of aspirin; Z79.899 Other long term (current) drug therapy
CPT/HCPCS: 36200; 75625; 75716; C1769 ×3; C1894; J2250; J2001; Q9966

== ENCOUNTER → 2018-08-10 | Outpatient (CLI) | payer BC ==
[2018-08-10 17:44] LABS: Basophils # (A) 0.1 k/uL (0-0.2); Basophils % (A) 1 %; Eosinophils # (A) 0.5 k/uL (0-0.7); Eosinophils % (A) 4 %; HCT 47.8 % (39.0-53.0); HGB 16.2 gm/dL (13.0-17.5); Lymphocytes # (A) 2.8 k/uL (1.0-4.8); Lymphocytes % (A) 23 %; MCH 30.5 pg (25.0-35.0); MCHC 33.8 g/dL (31.0-37.0); MCV 90.1 fL (80.0-100.0); Mean Platelet Volume 7.1; Monocytes # (A) 0.5 k/uL (0-1.0); Monocytes % (A) 4 %; Neutrophils % (A) 67 %; Platelet Count 304 k/uL (150-450); RDW 12.9 % (11.5-15.5)
[2018-08-10 18:07] LABS: Anion Gap 8 mmol/L; Blood Urea Nitrogen 11 mg/dL (9-20); Carbon Dioxide 28 mmol/L (22-30); Chloride 106 mmol/L (98-107); Potassium 4.2 mmol/L (3.5-5.1); Sodium 142 mmol/L (137-145)
== END | disposition home or self-care (01) ==
LOC: LABPAT 17:06
PROVIDERS: ATTEND Internal Medicine Interventional Cardiology
DX: Z01.812 Encounter for preprocedural laboratory examination (principal); I70.212 Atherosclerosis of native arteries of extremities with intermittent claudication, left leg
CPT/HCPCS: 80051; 82565; 84520; 85025; 85027

== ENCOUNTER 2018-08-17 06:33 | Day surgery (SDC) | payer BC ==
[2018-08-14 11:38] VITALS: BMI 22.9
[~2018-08-17 06:33] MED LIST changes: -ALPRAZolam 0.25 MG TAB PO PRN; -ASPIRIN 325 MG TAB PO ONE; -IOPAMIDOL-250 100ML BTL INTRAARTER ONE; -LIDOCAINE 1% (PF) 10MG/ML VIAL SQ ONE; -MIDAZOLAM 2 MG/2 ML VIAL IVP ONE; -SODIUM CHLORIDE 0.9% 1,000 ML IV SCH
[2018-08-17] MEDS ORDERED: SODIUM CHLORIDE 0.9% 1,000 ML IV ONE (07:10)
[2018-08-17 07:15] LABS: Basophils # (A) 0.1 k/uL (0-0.2); Basophils % (A) 1 %; Eosinophils # (A) 0.8 k/uL (0-0.7); Eosinophils % (A) 7 %; HCT 47.4 % (39.0-53.0); HGB 15.3 gm/dL (13.0-17.5); Lymphocytes # (A) 4.5 k/uL (1.0-4.8); Lymphocytes % (A) 36 %; MCH 29.3 pg (25.0-35.0); MCHC 32.2 g/dL (31.0-37.0); MCV 91.2 fL (80.0-100.0); Mean Platelet Volume 6.9; Monocytes # (A) 0.6 k/uL (0-1.0); Monocytes % (A) 5 %; Neutrophils # (A) 6.5 k/uL (1.3-7.7); Neutrophils % (A) 51 %; Platelet Count 304 k/uL (150-450); RDW 12.8 % (11.5-15.5); WBC 12.7 k/uL (3.8-10.6)
[2018-08-17] MEDS ORDERED: fentaNYL (PF) 50 MCG/ML 2 ML AMP IVP ONE (07:50)
[2018-08-17] MEDS ORDERED: MIDAZOLAM 2 MG/2 ML VIAL IVP ONE (07:50)
[2018-08-17] MEDS ORDERED: IOPAMIDOL-250 100ML BTL INTRAARTER ONE (08:33)
[2018-08-17] MEDS ORDERED: NITROGLYCERIN SL TABS 0.4 MG TAB SUBLINGUAL PRN (08:34)
[2018-08-17] MEDS ORDERED: SODIUM CHLORIDE 0.9% 1,000 ML IV SCH (08:45)
[2018-08-17] MEDS ORDERED: ASPIRIN 81 MG PO SCH (09:00)
--- NOTE | 2018-08-17 09:40 | IR ---
EXAMINATION TYPE: IR stent intravas non coronary DATE OF EXAM: 08/17/2018 COMPARISON: NONE HISTORY: Peripheral vascular occlusive disease. Fluoroscopy was provided to the referring clinician. See dictated report from cardiology.
--- NOTE | 2018-08-17 10:03 | LTR ---
August 17, 2018 Re: Reece Mcbins Dear Dr. Mccormick: Mr. Reece Baig underwent successful stenting of the left common iliac artery with good angiographic results and without any complication. Thank you for allowing me to participate in his care. Sincerely, MD GINA Riley / KALYAN: [id number] /
--- NOTE | 2018-08-17 10:09 | AN ---
ANGIOGRAPHY REPORT PERCUTANEOUS PERIPHERAL INTERVENTION DATE OF SERVICE: August 17, 2018 PERFORMING PHYSICIAN: Jemal Lugo MD, property valuer. PROCEDURE PERFORMED: 1. Selective left common iliac artery angiogram. 2. Successful stenting of the ostial left common iliac artery using 7.0 x 19 mm Omnilink balloon expandable stent with good angiographic results and reduction of stenosis from 90% to 0%. 3. Selective left common femoral artery angiogram. INDICATION: This is a pleasant 52-year-old gentleman who sees Dr. Quiroz in the office as an outpatient with known history of coronary artery disease and history of smoking, who was experiencing left leg intermittent claudication and underwent a peripheral angiogram and that revealed critical disease involving the left common iliac artery. He was brought today to undergo an intervention. APPROACH: Left common femoral artery. COMPLICATION: None. LEVEL OF SEDATION: Moderate with sedation length of 34 minutes. PROCEDURE DESCRIPTION: After obtaining an informed consent, the patient was brought to the cardiac bobcat driver/labor. The left common femoral artery was cannulated using micropuncture technique, the micropuncture wire passed easily then I placed a 23 cm Brite Tip sheath in the left common femoral artery. The sheath was advanced all the way to the left common iliac artery. I did selective left common iliac artery angiogram. Subsequently I did wire the lesion using an 0.035 glide advantage wire. After that, I did direct stenting of the lesion using 7.0 x 19 mm Omnilink balloon expandable stent where the stent was positioned under fluoroscopy guidance and deployed under 16 atmospheres for 1 minute. I postdilated the stent using 8 mm balloon. The following angiogram showed good angiographic results with reduction of stenosis from 90% to 0%. After that I did exchange my 23 cm Brite Tip sheath into 11 cm 7-[place]ican sheath over a 0.035 glide advantage wire. I did finally a selective left common femoral artery angiogram before the procedure was completed. POSTPROCEDURE MANAGEMENT: 1. Dual anti-platelet therapy. 2. Risk factors modifications. 3. Follow up with the patient. MMODL / IJN: [id number] /
[2018-08-17 18:29] VITALS: RESP 18
[2018-08-17] MEDS: METOPROLOL TARTRATE 25 MG TAB PO SCH (20:13)
[2018-08-17] MEDS: TICAGRELOR 90 MG TAB PO SCH (20:13)
[2018-08-17] MEDS ORDERED: ATORVASTATIN 80 MG TAB PO SCH (21:00)
[2018-08-17] MEDS ORDERED: LISINOPRIL 5 MG TAB PO SCH (21:00)
[2018-08-18 04:03] VITALS: PULSE 62
[2018-08-18 06:29] LABS: Basophils # (A) 0.1 k/uL (0-0.2); Basophils % (A) 1 %; Eosinophils # (A) 0.9 k/uL (0-0.7); Eosinophils % (A) 8 %; HCT 43.2 % (39.0-53.0); HGB 14.3 gm/dL (13.0-17.5); Lymphocytes # (A) 3.4 k/uL (1.0-4.8); Lymphocytes % (A) 30 %; MCH 29.8 pg (25.0-35.0); MCHC 33.2 g/dL (31.0-37.0); MCV 89.8 fL (80.0-100.0); Monocytes # (A) 0.5 k/uL (0-1.0); Monocytes % (A) 5 %; Neutrophils # (A) 6.2 k/uL (1.3-7.7); Neutrophils % (A) 55 %; Platelet Count 272 k/uL (150-450); RDW 12.9 % (11.5-15.5); WBC 11.2 k/uL (3.8-10.6)
[2018-08-18 06:52] LABS: Anion Gap 4 mmol/L; Blood Urea Nitrogen 12 mg/dL (9-20); Calcium 8.9 mg/dL (8.4-10.2); Carbon Dioxide 26 mmol/L (22-30); Chloride 109 mmol/L (98-107); Glucose 99 mg/dL (74-99); Potassium 4.2 mmol/L (3.5-5.1); Sodium 139 mmol/L (137-145)
[2018-08-18] MEDS: TICAGRELOR 90 MG TAB PO SCH (08:53)
[2018-08-18] MEDS: METOPROLOL TARTRATE 25 MG TAB PO SCH (08:53)
[2018-08-18 08:58] VITALS: BP 99/57; TEMP 96.9
--- NOTE | 2018-08-18 08:58 | P.DS ---
Providers Date of admission: August 172017 Attending physician: Jemal Lugo [facility] Course: This is a pleasant 52-year-old gentleman with history of coronary artery disease as well as history of smoking who was admitted to the hospital yesterday and underwent successful stenting of the ostial left common iliac artery with a good angiographic results and reduction of stenosis from 99% to 0 % using balloon expandable stent. The procedure was performed from the left groin. The left groin is soft and nontender and without any bruises. He does have excellent left femoral pulse. The patient is going to be discharged home later on today. He will be on dual antiplatelet therapy along with a statin. I will follow-up with the patient in a week in the office and the patient will be referred to see his primary retail pos specialist Dr. VC Quiroz. Plan - Discharge Summary Discharge Rx Participant: No New Discharge Prescriptions: Continue Aspirin 81 mg PO DAILY #30 chew Atorvastatin [Lipitor] 80 mg PO HS #30 tab Metoprolol Tartrate [Lopressor] 25 mg PO BID #60 tab Nitroglycerin Sl Tabs [Nitrostat] 0.4 mg SUBLINGUAL Q5M PRN #25 tab PRN Reason: Chest Pain Spironolactone [Aldactone] 25 mg PO DAILY #30 tab Ticagrelor [Brilinta] 90 mg PO BID #90 tab Varenicline Tartrate [Chantix Starter Pack] 1 mg PO DAILY Lisinopril [Zestril] 5 mg PO HS Discharge Medication List Aspirin 81 mg PO DAILY #30 chew 03/03/18 [Rx] Atorvastatin [Lipitor] 80 mg PO HS #30 tab 03/03/18 [Rx] Metoprolol Tartrate [Lopressor] 25 mg PO BID #60 tab 03/03/18 [Rx] Nitroglycerin Sl Tabs [Nitrostat] 0.4 mg SUBLINGUAL Q5M PRN #25 tab 03/03/18 [Rx ] Spironolactone [Aldactone] 25 mg PO DAILY #30 tab 03/03/18 [Rx] Ticagrelor [Brilinta] 90 mg PO BID #90 tab 03/03/18 [Rx] Varenicline Tartrate [Chantix Starter Pack] 1 mg PO DAILY 07/16/18 [History] Lisinopril [Zestril] 5 mg PO HS 07/20/18 [History] Follow up Appointment(s)/Referral(s): Jemal Lugo MD [STAFF PHYSICIAN] - 08/25/18 11:30 am Patient Instructions/Handouts: Heart Healthy Diet (DC), Peripheral Vascular Stent Placement (DC)
[2018-08-18] MEDS ORDERED: VARENICLINE 1 MG TAB PO SCH (09:00)
[2018-08-18] MEDS ORDERED: SPIRONOLACTONE 25 MG TAB PO SCH (09:00)
[2018-08-18] MEDS ORDERED: ASPIRIN 81 MG PO SCH (09:00)
== END 2018-08-18 09:50 | disposition home or self-care (01) ==
LOC: CATHCVL 06:33 → 3SCARD 08:25 → CATHCVL 08-18 09:50
PROVIDERS: ATTEND Internal Medicine Interventional Cardiology
DX: I70.212 Atherosclerosis of native arteries of extremities with intermittent claudication, left leg (principal); I10 Essential (primary) hypertension; E78.5 Hyperlipidemia, unspecified; I25.10 Atherosclerotic heart disease of native coronary artery without angina pectoris; I25.2 Old myocardial infarction; Z82.49 Family history of ischemic heart disease and other diseases of the circulatory system; F17.210 Nicotine dependence, cigarettes, uncomplicated; Z79.02 Long term (current) use of antithrombotics/antiplatelets; Z79.82 Long term (current) use of aspirin; Z79.899 Other long term (current) drug therapy
CPT/HCPCS: 37221; 80048; 85025 ×2; C1894 ×2; C1725; C1876; C1769 ×4; J2250; J3010; J1644; Q9966

== ENCOUNTER → 2018-10-28 | Outpatient (CLI) | payer BC | LOC: LABWHC1 15:30 | PROVIDERS: ATTEND Internal Medicine Cardiovascular Disease | DX: I25.10 Atherosclerotic heart disease of native coronary artery without angina pectoris (principal) | CPT/HCPCS: 36415; 83695; 83704 ==